=== PATIENT | female | born 1985 | race Caucasian/White ===

== ENCOUNTER 2017-07-24 09:55 | Day surgery (SDC) | payer OTHER ==
[2017-07-23 10:30] LABS: BILIRUBIN,URINE NEGATIVE (NEGATIVE); BLOOD, URINE NEGATIVE (NEGATIVE); CLARITY/URINE CLEAR (CLEAR); COLOR,URINE YELLOW (YELLOW); GLUCOSE,URINE NEGATIVE (NEGATIVE); KETONES,URINE NEGATIVE (NEGATIVE); LEUKOCYTE ESTERASE ,URINE NEGATIVE (NEGATIVE); NITRITE, URINE NEGATIVE (NEGATIVE); PH,URINE 5.5 (5.0-8.0); PROTEIN URINE NEGATIVE (NEGATIVE); UROBILINOGEN,URINE 0.2 (0.2-1.0)
[~2017-07-24] VITALS: Ht 152.4 cm; Wt 51.3 kg
[~2017-07-24 09:55] MED LIST: PREN1TAB49 PO
[2017-07-24] MEDS ORDERED: DEXAMETHASONE SOD PHOSPHATE 4 MG/ML VIAL IVP ONE (11:30)
[2017-07-24] MEDS ORDERED: SUCCINYLCHOLINE CHLORIDE 20 MG/ML(QUELICIN) IVP ONE (11:30)
[2017-07-24] MEDS ORDERED: KETOROLAC TROMETHAMINE 30 MG VIAL IVP ONE (11:30)
[2017-07-24] MEDS ORDERED: fentaNYL CITRATE 250 MCG/5 ML AMP IV ONE (11:30)
[2017-07-24] MEDS ORDERED: LR 1,000 ML IV.SOLN IV ONE (11:30)
[2017-07-24] MEDS ORDERED: SEVOFLURANE 15 MIN GAS INH ONE (11:30)
[2017-07-24] MEDS ORDERED: ONDANSETRON HCL 4 MG/2 ML VIAL IVP ONE (11:30)
[2017-07-24] MEDS ORDERED: ROCURONIUM BROMIDE 10 MG/ML (ZEMURON) IV ONE (11:30)
[2017-07-24] MEDS ORDERED: BUPIVACAINE /EPINEPHRINE/PF 0.5% 30 ML VIAL INJ ONE (11:30)
[2017-07-24] MEDS ORDERED: MIDAZOLAM HCL 5 MG/5 ML VIAL IVP ONE (11:30)
[2017-07-24] MEDS ORDERED: NS IRRIG SOLN 1000 ML IR ONE (11:30)
[2017-07-24] MEDS ORDERED: PROPOFOL 200MG/ 20ML VIAL (DIPRIVAN) IV ONE (11:30)
[2017-07-24] MEDS ORDERED: LR 1,000 ML IV SCH (12:33)
[2017-07-24] MEDS ORDERED: MEPERIDINE HCL/PF 25 MG/ML DISP.SYRIN IVP PRN (12:45)
[2017-07-24] MEDS ORDERED: MORPHINE 4 MG/ML INJ. SYRINGE IVP PRN ×2 (12:45)
[2017-07-24] MEDS ORDERED: MORPHINE SULFATE 10 MG/ML VIAL IVP PRN (12:45)
[2017-07-24] MEDS ORDERED: OXYCODONE/ACETAMINOPHEN 5-325 TABLET PO PRN (13:15)
[2017-07-24] MEDS ORDERED: ONDANSETRON HCL 4 MG/2 ML VIAL IVP PRN (13:15)
[2017-07-24] MEDS ORDERED: PROMETHAZINE HCL 25 MG/ML AMP IM PRN (13:15)
[2017-07-24] MEDS ORDERED: MORPHINE 4 MG/ML INJ. SYRINGE ONE (13:48)
[2017-07-24] MEDS ORDERED: OXYCODONE/ACETAMINOPHEN 5-325 TABLET ONE (14:20)
[2017-07-24 14:32] VITALS: BP_SYST 106
== END 2017-07-24 15:35 | disposition home or self-care (01) ==
LOC: SMU 09:55 → SDS 09:55
PROVIDERS: ATTEND Obstetrics & Gynecology
DX: N80.1 Endometriosis of ovary (principal); Z98.890 Other specified postprocedural states; Z80.3 Family history of malignant neoplasm of breast; Z88.0 Allergy status to penicillin
CPT/HCPCS: 36415 ×2; 58662; 81003; 86886 ×2; 86900 ×2; 86901 ×2; C1727; J0330; J1100; J1885; J2250; J2270; J2405; J2704; J3010; J3490; J7120